=== PATIENT | female | born 1960 | race Caucasian/White ===

== ENCOUNTER 2022-02-06 12:48 | Outpatient (REF) | payer MEDICARE, SELFPAY ==
[2022-02-06 13:55] LABS: Estimated Average Glucose 140 mg/dL; Hemoglobin A1c % 6.5 %
[2022-02-06 14:07] LABS: Alanine Aminotransferase 16 U/L (0-31); Albumin Level 4.2 g/dL (3.5-5.0); Alkaline Phosphatase 90 U/L (39-117); Anion Gap 11 (12-20); Aspartate Amino Transferase 12 U/L (5-31); Bilirubin Total 0.6 mg/dL (0.0-1.0); Blood Urea Nitrogen 21 mg/dL (9-16); Calcium 9.8 mg/dL (8.4-10.2); Carbon Dioxide 27 mmol/L (22-29); Chloride 105 mmol/L (96-108); Estimated Glomerular Filt Rate 35; Glucose Random 106 mg/dL (60-115); Sodium 139 mmol/L (135-145); Total Protein 7.3 g/dL (6.5-8.0)
== END 2022-02-06 12:49 | disposition home or self-care (01) ==
LOC: HO.LAB 12:48
PROVIDERS: PCP Internal Medicine; Visit Provider Psychiatry & Neurology Psychiatry
DX: F31.0 Bipolar disorder, current episode hypomanic (principal)
CPT/HCPCS: 36415; 80053; 83036

== ENCOUNTER → 2022-07-15 09:10 | Outpatient (BNVA) | payer MEDICARE, SELFPAY | PROVIDERS: PCP Internal Medicine; Visit Provider Psychiatry & Neurology Psychiatry | DX: F31.9 Bipolar disorder, unspecified (principal) | CPT/HCPCS: 90833; 99212 ==

== ENCOUNTER → 2022-09-11 10:33 | Outpatient (BNVA) | payer MEDICARE, SELFPAY | PROVIDERS: PCP Internal Medicine; Visit Provider Psychiatry & Neurology Psychiatry | DX: F31.9 Bipolar disorder, unspecified (principal); E11.22 Type 2 diabetes mellitus with diabetic chronic kidney disease; N18.30 Chronic kidney disease, stage 3 unspecified; D89.40 Mast cell activation, unspecified | CPT/HCPCS: 99212 ==

== ENCOUNTER 2024-03-24 11:49 | Outpatient (AMB) | payer MEDICARE, SELFPAY ==
--- NOTE | 2024-03-24 12:40 | MHC.OFFVISPS ---
Intake Intake Visit Reasons: depression Allergies Sulfa (Sulfonamide Antibiotics) [SULFA (SULFONAMIDE ANTIBIOTICS)] Allergy (Unknown, Unverified 05/30/20 16:56) UNKNOWN, RASH Medication List - Last Reconciled 03/24/24 by Sami Dalton MD albuterol sulfate 90 mcg/actuation 0 mcg inhalation aspirin mg PO DAILY famotidine 40 mg PO BID famotidine 40 mg PO BID levothyroxine 75 mcg PO DAILY quetiapine 25 mg PO BID PRN quetiapine 300 mg (3 x 100 mg) PO BEDTIME semaglutide (Ozempic) 2 mg subcut QWEEK HPI- Psychiatric Chief Complaint: depression HPI Narrative: Patient seen psychiatric follow-up. Tends to be noncompliant often with follow-up appointments. Patient had been relatively stable on Lamictal Seroquel we have discussed benefit of being on a mood stabilizing agent that is not also on antipsychotic secondary to issues related to tardive dyskinesia. Patient does have some degree of chronic financial difficulty which is an ongoing stress. 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 Patient did tolerate lamotrigine Patient has had some episodes of hypomania generally tends more toward depression Past Psychiatric History: past hx hosp for depression used see dr cheney Mental Status Exam Mental Status Exam Narrative: Mental Status Exam Narrative: Appearance: Casually dressed Behavior: Cooperative appropriate psychomotor: Within normal limits Speech: Normal volume and prosody Thought proccess logical and goal-directed some rumination Thought content: Some focus on multiple life concerns financial concerns Mood: anxiety Affect: Appropriate to mood full affect SI:denies HI:denies VH/AH:none Delusions: None Insight/judgment: Good insight and judgment Memory/cog: Intact Assessment and Plan Assessment & Plan (1) Bipolar 1 disorder: Status: Acute Code(s): F31.9 - Bipolar disorder, unspecified (2) Diabetes type 2, controlled: Status: Acute Code(s): E11.9 - Type 2 diabetes mellitus without complications (3) CKD (chronic kidney disease) stage 3, GFR 30-59 ml/min: Status: Acute Code(s): N18.30 - Chronic kidney disease, stage 3 unspecified (4) Mast cell activation syndrome: Status: Acute Code(s): D89.40 - Mast cell activation, unspecified Plan Discussed with patient option to restart lamotrigine no evidence of oral facial dyskinesia or other abnormal movements noted on exam. Patient is aware of tardive dyskinesia risk and increased blood sugar with quetiapine has felt comfortable with this for an extended period of time. Resume prior plan lamotrigine try and see if Seroquel dose can be gradually lowered over time once lamotrigine that more therapeutic dose some cycling noted no psychosis follow-up 6 weeks Medications: New lamotrigine PO PER PKG DIR 28 ea 0RF Counseling and coordination of Care Pt. Self Management counseling: Med illness tx adherence Details-Self Mgmt counseling: Issues related to managing bipolar disorder long-term maintenance of bipolar disorder Medication management counseling: Effectiveness and Side effects Diagnosis and Prognosis Counseling: Impact of diagnosis on life functions, Problematic behaviors secondary to diagnosis and Adequacy of current interventions Details: I spent [38] minutes reviewing the record, seeing the patient and documenting in the medical record. Counseling provided to the patient/caregiver as outlined below. Addressed patient/caregiver concerns regarding current medication regime including effective adherence. Addressed patient/caregiver concerns regarding diagnosis and prognosis including accuracy of diagnosis, prognosis over time, impact of diagnosis. Addressed patient/caregiver concerns regarding impact of recent stressors. [facility] Medical History (Updated 07/15/22 @ 09:27 by Sami Dalton MD) Mast cell activation syndrome Bipolar 1 disorder Diabetes type 2, controlled CKD (chronic kidney disease) stage 3, GFR 30-59 ml/min Social History: 2b 2 sisters pos fh bipolar ? 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
== END 2024-03-24 13:05 | disposition home or self-care (01) ==
LOC: HO.HOP 11:49
PROVIDERS: PCP Internal Medicine; Visit Provider Psychiatry & Neurology Psychiatry
DX: F31.9 Bipolar disorder, unspecified (principal); E11.9 Type 2 diabetes mellitus without complications; N18.30 Chronic kidney disease, stage 3 unspecified; D89.40 Mast cell activation, unspecified
CPT/HCPCS: 90833; 99213

== ENCOUNTER → 2024-03-24 11:49 | Outpatient (BNVA) | payer MEDICARE, SELFPAY | PROVIDERS: PCP Internal Medicine; Visit Provider Psychiatry & Neurology Psychiatry | DX: F31.9 Bipolar disorder, unspecified (principal); E11.22 Type 2 diabetes mellitus with diabetic chronic kidney disease; N18.30 Chronic kidney disease, stage 3 unspecified; D89.40 Mast cell activation, unspecified | CPT/HCPCS: 99212 ==

== ENCOUNTER 2024-05-25 15:29 | Outpatient (AMB) | payer MEDICARE, SELFPAY ==
--- NOTE | 2024-05-25 15:35 | MHC.OFFVISPS ---
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 Allergies Sulfa (Sulfonamide Antibiotics) [SULFA (SULFONAMIDE ANTIBIOTICS)] Allergy (Unknown, Unverified 05/30/20 16:56) UNKNOWN, RASH Medication List - Last Reconciled 05/25/24 by Nisa Ellis APRN albuterol sulfate 90 mcg/actuation 0 mcg inhalation aspirin mg PO DAILY famotidine 40 mg PO BID famotidine 40 mg PO BID lamotrigine PO PER PKG DIR levothyroxine 75 mcg PO DAILY quetiapine 25 mg PO BID PRN quetiapine 300 mg (3 x 100 mg) PO BEDTIME semaglutide (Ozempic) 2 mg subcut QWEEK HPI- Psychiatric Chief Complaint: depression HPI Narrative: pt rports off lamictal due to not taking the starter kit as pills flavored with mint and she is allergic; pt mood elevated; speech slightly pressured; has significant trauma hx with adopted children and loss of one son last year. pt functioning well at work. sleep intact; no SI or Hi; she wonders about ADHD as she has just recently learned more about it and sees herself in the description. Discussed need to stabilize mood symptoms before evaluating and treating adhd symptoms Past Psychiatric History: past hx hosp for depression used see dr cheney Subjective Subjective Subjective Medication Compliance: Yes Side effects from medications: No Review of Systems Medical Review of Systems: unchanged Mental Status Exam Mental Status Exam Patient Appearance: Well Grooomed and Appropriate Patient Orientation: Person, Place, Time and Situation Level of Consciousness: Awake and Appropriate Patient Behavior: Appropriate and Cooperative Mood Description: Happy (elevated) Affect Description: Expansive Patient Cognition Impaired: No Ability to Follow Directions: Good Speech Pattern: Clear and Excessive Memory Description: Intact Hallucinations: None Delusions: Not Present Thought Process: Intact and Goal Oriented Thought Content: positive for Intact, positive for Goal Oriented and positive for Loose Associations Judgement: Good Assessment and Plan Assessment & Plan (1) Bipolar 1 disorder: Status: Acute Code(s): F31.9 - Bipolar disorder, unspecified Medications: New lamotrigine (Lamictal) 25 mg orally take one tab daily x 10 days then 2 tabs daily x 10 days then 4 tablets daily; 90 tabs 0RF lamotrigine (Lamictal) starting on June 16, 2024 take one tab daily x 10 days then take 1&1/2 tabs daily x 10 days then take 2 tabs daily; 60 tabs 0RF Refilled quetiapine 300 mg (3 x 100 mg) PO BEDTIME 270 tabs 0RF Discontinued lamotrigine Discontinued Reason: Doctor's Order PO PER PKG DIR 28 ea 0RF Counseling and coordination of Care Pt. Self Management counseling: Maintenance-social rhythm, Mod caffeine/ETOH intake, Sleep hygiene and Behavior activation Medication management counseling: Effectiveness, Side effects, Dosing range, Duration, Drug interaction and Adherence Diagnosis and Prognosis Counseling: Accuracy of diagnosis, Prognosis over time and Adequacy of current interventions Details: I spent 30 minutes reviewing the record, seeing the patient and documenting in the medical record. Counseling provided to the patient/caregiver as outlined below. Addressed patient/caregiver concerns regarding current medication regime including effective adherence. Addressed patient/caregiver concerns regarding diagnosis and prognosis including accuracy of diagnosis, prognosis over time, impact of diagnosis. Addressed patient/caregiver concerns regarding impact of recent stressors. [facility] Medical History (Updated 07/15/22 @ 09:27 by Sami Dalton MD) Mast cell activation syndrome Bipolar 1 disorder Diabetes type 2, controlled CKD (chronic kidney disease) stage 3, GFR 30-59 ml/min Social History: 2b 2 sisters pos fh bipolar ? 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
== END 2024-05-25 16:16 | disposition home or self-care (01) ==
LOC: HO.HOP 15:29
PROVIDERS: PCP Internal Medicine; Visit Provider Clinical Nurse Specialist Psychiatric/Mental Health
DX: F31.9 Bipolar disorder, unspecified (principal)
CPT/HCPCS: 99214

== ENCOUNTER → 2024-05-25 15:29 | Outpatient (BNVA) | payer MEDICARE, SELFPAY | PROVIDERS: PCP Internal Medicine; Visit Provider Clinical Nurse Specialist Psychiatric/Mental Health | DX: F31.9 Bipolar disorder, unspecified (principal) | CPT/HCPCS: 99212 ==

== ENCOUNTER 2024-07-25 09:45 | Outpatient (AMB) | payer MEDICARE, SELFPAY ==
--- NOTE | 2024-07-25 09:49 | MHC.OFFVISPS ---
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 Allergies Sulfa (Sulfonamide Antibiotics) [SULFA (SULFONAMIDE ANTIBIOTICS)] Allergy (Unknown, Unverified 05/30/20 16:56) UNKNOWN, RASH Medication List - Last Reconciled 07/25/24 by Nisa Ellis APRN albuterol sulfate 90 mcg/actuation 0 mcg inhalation aspirin mg PO DAILY dextroamphetamine-amphetamine 10 mg (Adderall) 10 mg PO BID famotidine 40 mg PO BID famotidine 40 mg PO BID lamotrigine (Lamictal) 200 mg PO DAILY levothyroxine 75 mcg PO DAILY quetiapine 300 mg (3 x 100 mg) PO BEDTIME quetiapine 25 mg PO BID PRN semaglutide (Ozempic) 2 mg subcut QWEEK HPI- Psychiatric Chief Complaint: depression HPI Narrative: Pt reports no depression but continued difficulties with attention, focus, easy frustrated when things are out of order. she reports getting very upset about faily moving her belongings several times which interferes with her organization; she reports sleeping well. no pressured speech, no grandiosity. no behavioral impulsivity; reports verbal outbursts about boundary violations. Past Psychiatric History: past hx hosp for depression used see dr cheney Subjective Subjective Subjective Medication Compliance: Yes Side effects from medications: No Review of Systems Medical Review of Systems: unchanged Mental Status Exam Mental Status Exam Patient Appearance: Well Grooomed and Appropriate Patient Orientation: Person, Place, Time and Situation Level of Consciousness: Awake, Appropriate and Alert Patient Behavior: Appropriate and Talkative Mood Description: Calm Affect Description: Calm and Flat Patient Cognition Impaired: No Ability to Follow Directions: Good Speech Pattern: Clear Memory Description: Intact Hallucinations: None Delusions: Not Present Thought Process: Intact Thought Content: positive for Intact and positive for Loose Associations Judgement: Good Assessment and Plan Assessment & Plan (1) ADHD (attention deficit hyperactivity disorder), combined type: Status: Acute Code(s): F90.2 - Attention-deficit hyperactivity disorder, combined type (2) Bipolar 1 disorder: Status: Acute Code(s): F31.9 - Bipolar disorder, unspecified Plan lamictal 200mg daily seroquel 300mg at hs seroquel 25 mg bid prn anxiety/agitation trial of adderall 10 mg BID Medications: New lamotrigine (Lamictal) 200 mg PO DAILY 90 tabs 2RF dextroamphetamine-amphetamine 10 mg (Adderall) administer doses at least 4-6 hours apart; Partial Fill upon patient request. 10 mg PO BID 60 tabs 0RF Refilled quetiapine 300 mg (3 x 100 mg) PO BEDTIME 270 tabs 0RF quetiapine 25 mg PO BID PRN 60 tabs 2RF anxiety Discontinued lamotrigine (Lamictal) Discontinued Reason: Doctor's Order 100 mg PO DAILY 90 tabs 1RF Counseling and coordination of Care Pt. Self Management counseling: Mod caffeine/ETOH intake, Sleep hygiene, Cognitive restructuring, General coping skills and Problem solving Medication management counseling: Effectiveness, Side effects, Dosing range, Duration, Drug interaction and Adherence Diagnosis and Prognosis Counseling: Accuracy of diagnosis, Prognosis over time, Impact of diagnosis on life functions, Impact of family relationship, Problematic behaviors secondary to diagnosis and Adequacy of current interventions Details: I spent 45 minutes reviewing the record, seeing the patient and documenting in the medical record. Counseling provided to the patient/caregiver as outlined below. Addressed patient/caregiver concerns regarding current medication regime including effective adherence. Addressed patient/caregiver concerns regarding diagnosis and prognosis including accuracy of diagnosis, prognosis over time, impact of diagnosis. Addressed patient/caregiver concerns regarding impact of recent stressors. COUNTS INCLUDE 234 BEDS AT THE [facility] Medical History (Updated 07/25/24 @ 10:00 by Nisa Ellis APRN) Mast cell activation syndrome Bipolar 1 disorder Diabetes type 2, controlled CKD (chronic kidney disease) stage 3, GFR 30-59 ml/min Social History: 2b 2 sisters pos fh bipolar ? 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
== END 2024-07-25 09:48 | disposition home or self-care (01) ==
LOC: HO.HOP 09:45
PROVIDERS: PCP Internal Medicine; Visit Provider Clinical Nurse Specialist Psychiatric/Mental Health
DX: F31.31 Bipolar disorder, current episode depressed, mild (principal); F90.2 Attention-deficit hyperactivity disorder, combined type
CPT/HCPCS: 99215

== ENCOUNTER → 2024-07-25 09:45 | Outpatient (BNVA) | payer MEDICARE, SELFPAY | PROVIDERS: PCP Internal Medicine; Visit Provider Clinical Nurse Specialist Psychiatric/Mental Health | DX: F90.2 Attention-deficit hyperactivity disorder, combined type (principal); F31.9 Bipolar disorder, unspecified | CPT/HCPCS: 99212 ==

== ENCOUNTER 2024-09-25 14:56 | Outpatient (AMB) | payer MEDICARE, SELFPAY ==
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
== END 2024-09-25 15:35 | disposition home or self-care (01) ==
PROVIDERS: PCP Internal Medicine; Visit Provider Clinical Nurse Specialist Psychiatric/Mental Health
DX: F90.2 Attention-deficit hyperactivity disorder, combined type (principal); F31.9 Bipolar disorder, unspecified
CPT/HCPCS: 99214

== ENCOUNTER → 2024-09-25 14:56 | Outpatient (BNVA) | payer MEDICARE, SELFPAY | PROVIDERS: PCP Internal Medicine; Visit Provider Clinical Nurse Specialist Psychiatric/Mental Health | DX: F90.2 Attention-deficit hyperactivity disorder, combined type (principal); F31.9 Bipolar disorder, unspecified | CPT/HCPCS: 99212 ==

== ENCOUNTER 2024-11-14 08:51 | Outpatient (AMB) | payer MEDICARE, SELFPAY ==
--- NOTE | 2024-11-14 09:07 | MHC.OFFVISPS ---
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 Allergies Sulfa (Sulfonamide Antibiotics) [SULFA (SULFONAMIDE ANTIBIOTICS)] Allergy (Unknown, Unverified 05/30/20 16:56) UNKNOWN, RASH Medication List - Last Reconciled 11/14/24 by Nisa Ellis APRN albuterol sulfate 90 mcg/actuation 0 mcg inhalation aspirin mg PO DAILY dextroamphetamine-amphetamine 10 mg (Adderall) 10 mg PO BID famotidine 40 mg PO BID famotidine 40 mg PO BID lamotrigine (Lamictal) 200 mg PO DAILY levothyroxine 75 mcg PO DAILY quetiapine 300 mg (3 x 100 mg) PO BEDTIME quetiapine 25 mg PO BID PRN semaglutide (Ozempic) 2 mg subcut QWEEK HPI- Psychiatric Chief Complaint: depression HPI Narrative: pt reports mood stableoverall; she does report low energy, low motivation, she often doesn't take the second adderall as she not sure what tieme to take it; she feels the first adderall works most of the day but wears off around 3 pm. we discussed her takinf the second addeerall at 3 pm or at least 4-5 hours before bedtime. no medical changes; she is still getting used to her new home; she has finiancial stress; she does have friends she is spending time with. no SI no HI; no hypomania. She sees PCP Dr Kalen Romero from [facility] for PCP every 6 months and has labs done; she will try to send me the most recent labs done. Past Psychiatric History: past hx hosp for depression used see dr cheney Subjective Subjective Subjective Medication Compliance: Yes Side effects from medications: No Review of Systems Medical Review of Systems: unchanged Mental Status Exam Mental Status Exam Patient Appearance: Well Grooomed and Appropriate Patient Orientation: Person, Place, Time and Situation Level of Consciousness: Awake, Appropriate and Alert Patient Behavior: Appropriate and Cooperative Mood Description: Calm and Depressed Affect Description: Depressed and Flat Ability to Follow Directions: Good Speech Pattern: Clear and Soft-Spoken Memory Description: Intact Hallucinations: None Delusions: Not Present Thought Process: Intact and Goal Oriented Thought Content: positive for Intact and positive for Goal Oriented Judgement: Good Assessment and Plan Assessment & Plan (1) ADHD (attention deficit hyperactivity disorder), combined type: Status: Acute Code(s): F90.2 - Attention-deficit hyperactivity disorder, combined type (2) Bipolar 1 disorder: Status: Acute Code(s): F31.9 - Bipolar disorder, unspecified Plan continue medications as is; take second adderall around 3pm daily retrun in 3 months f/u with PCP and obtain/share labs results if possible will request from pcp if pt unable Medications: Refilled dextroamphetamine-amphetamine 10 mg (Adderall) administer doses at least 4-6 hours apart; Partial Fill upon patient request. 10 mg PO BID 60 tabs 0RF lamotrigine (Lamictal) 200 mg PO DAILY 90 tabs 2RF quetiapine 25 mg PO BID PRN 60 tabs 2RF anxiety quetiapine 300 mg (3 x 100 mg) PO BEDTIME 270 tabs 1RF Counseling and coordination of Care Pt. Self Management counseling: Maintenance-social rhythm, Mod caffeine/ETOH intake, Nutrition education and improvement, Sleep hygiene, Behavior activation, General coping skills and Problem solving Medication management counseling: Effectiveness, Side effects, Dosing range, Duration, Drug interaction and Adherence Diagnosis and Prognosis Counseling: Accuracy of diagnosis, Prognosis over time, Impact of diagnosis on life functions, Impact of family relationship, Problematic behaviors secondary to diagnosis and Adequacy of current interventions Details: I spent 37 minutes reviewing the record, seeing the patient and documenting in the medical record. Counseling provided to the patient/caregiver as outlined below. Addressed patient/caregiver concerns regarding current medication regime including effective adherence. Addressed patient/caregiver concerns regarding diagnosis and prognosis including accuracy of diagnosis, prognosis over time, impact of diagnosis. Addressed patient/caregiver concerns regarding impact of recent stressors. [facility] Medical History (Updated 07/25/24 @ 10:00 by Nisa Ellis APRN) Mast cell activation syndrome Bipolar 1 disorder Diabetes type 2, controlled CKD (chronic kidney disease) stage 3, GFR 30-59 ml/min Social History: 2b 2 sisters pos fh bipolar ? 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
--- OUTSIDE RECORDS SUMMARY | 2024-11-14 09:32 | XMS_ITS | Clinical Summary ---
Author Organization [facility], Address [address] [place] [phone] Phone Care Team Providers Care Line Installer Trolley Name Role Phone Kalen Ballesteros MD Primary Care Provider [phone] Allergies Active Allergy Reactions Criticality Noted Date Comments Sulfamethoxazole-Trimethop rim 12/15/2019 Procaine 12/15/2019 Other 12/15/2019 Oral steroid Prednisone Other (see comments) 10/16/2021 Sulfa Antibiotics 12/15/2019 Medications levothyroxine (SYNTHROID, LEVOTHROID) 75 MCG tablet Take 75 mcg by mouth 1 (one) time each day Active EPINEPHrine (EPIPEN) 0.3 MG/0.3ML injection syringe 12/30/2020 Active QUEtiapine (SEROquel) 100 MG tablet TAKE THREE TABLETS BY MOUTH EVERY DAY AT BEDTIME 01/28/2021 Active Multiple Vitamin (multivitamin) capsule Take 1 capsule by mouth 1 (one) time each day Active famotidine (PEPCID) 40 MG tablet Take 40 mg by mouth 1 (one) time each day Active Dulaglutide (Trulicity) 1.5 MG/0.5ML solution pen-injector Inject under the skin Active omalizumab (Xolair) 150 MG injection Inject under the skin every 28 (twenty-eigh t) days Active levocetirizine (XYZAL) 5 MG tablet Take 5 mg by mouth 1 (one) time each day in the evening Active lamoTRIgine (LaMICtal) 150 MG tablet Take 150 mg by mouth at bed time 03/13/2022 Active Active Problems Problem Noted Date Diagnosed Date Stage 3a chronic kidney disease 12/15/2019 Overview (09/16/2020): Update for Diagnosis Load Hypothyroidism Polycystic kidney Recurrent urinary tract infection Vitamin D deficiency Type 2 diabetes mellitus Resolved Problems Problem Noted Date Diagnosed Date Resolved Date Other obstructive and reflux uropathy 01/02/2021 Immunizations Name Administration Dates Next Due H1N1 Inj 06/27/2020 Hep A, Unspecified 10/26/2006 Influenza Whole 07/02/2020 Influenza, MDCK, PF, Quadrivalent 07/06/2020 Influenza, Unspecified 07/06/2020,06/02/2012 MMR 10/26/2006 Pfizer SARS-COV-2 09/10/2021,12/28/2020,12/08/19 21 Td, Unspecified 09/13/2006 Tdap 02/19/2017 Family History Medical History Relation Comments Seizures Child Cancer Father lung Diabetes Father Lung cancer Father Skin cancer Father Stroke Father Alzheimer's disease Mother Dementia Mother Kidney disease Mother kidney failure Colon cancer Sibling 1 Diabetes Sibling 1 Diabetes Sibling 2 all bother Cancer Sibling 3 brother colon Relation Status Comments Child Father Mother Alive Sibling 1 Sibling 2 Sibling 3 Social History Tobacco Use Types Packs/Day Years Used Date Smoking Tobacco: Never Smokeless Tobacco: Never Alcohol Use Standard Drinks/Week Comments No 0 (1 standard drink = 0.6 oz pur e alcohol) Comments Unknown Sex and Gender Information Value Date Recorded Sex Assigned at Not on file Legal Sex Female 4:35 PM EST Gender Identity Not on file Sexual Orientation Not on file Last Filed Vital Signs Vital Sign Reading Time Taken Comments Blood Pressure - - Pulse - - Temperature - - Respiratory Rate - - Oxygen Saturation - - Inhaled Oxygen Concentration - - Weight 72.6 kg (160 lb) 12/18/2019 3:48 PM EDT Height - - Body Mass Index - - Plan of Treatment Upcoming Encounters Date Type Department Care Team (Late st Contact Info) Description 06/27/2025 4:00 PM EDT Office Visit [facility], [address] [place] [address] Santos Guerrero MD [address] [place] [address] Health Maintenance Due Date Last Done Comments Breast Cancer Screening 1961 Pneumococcal Vaccine: Pediatrics (0 to 5 Years) and At-Risk Patients (6 to 64 Years) (1 of 2 - PCV) 1967 Colorectal Cancer Screening: Annual FOBT 2010 Colorectal Cancer Screening: Sigmoidoscopy 2010 Diabetes: Ophthalmology Exam 12/15/2019 Diabetes: Pedal Pulse Checked 12/15/2019 Diabetes: Sensory Foot Exam 12/15/2019 Diabetes: Visual Foot Exam 12/15/2019 Diabetes: Hemoglobin A1C 09/10/2022 06/11/2022 Influenza Vaccine (#1) 2024 0, 07/06/2020, 07/02/2020, Additional history exists Colorectal Cancer Screening: Colonoscopy 09/09/2027 09/09/2017 Hepatitis B Vaccine Aged Out No longe r eligible based on patient's age to complete this topic Procedures Procedure Name Priority Date/Time Associated Diagnosis Comments HEMOGLOBIN A1C Routine 06/11/2022 3:46 PM EDT Stage 3a chronic kidney disease (HCC) Adult polycystic kidney from Last 3 Months or Most Recently Relevant to Health Maintenance Results * (ABNORMAL) Hemoglobin A1c (06/11/2022 3:46 PM EDT) Hemoglobin A1C 6.2(H) (4.0-5.6) % [facility] Comment: MONITORING: In known diabetic patients, hemoglobin A1c targets should be discussed with health care provider. DIAGNOSTIC USE: ??The [place] Diabetes Association (ADA) and the World Health Organization (WHO) recommend the use of HbA1c to diagnose diabetes using a threshold of 6.5%. Patients who have an HbA1c between 5.7% and 6.4% are considered at increased risk for developing diabetes in the future. CAUTION: Falsely low HbA1c results may be observed in patients with hemolytic anemia, homozygous forms of abnormal hemoglobin (e.g. SS, CC, SC), , recent blood loss or hemoglobin F greater than 7%. Fructosamine may be used as an alternate test in these cases. REFERENCE: ADA: Standards of Medical Care in Diabetes 2020, The Journal of Clinical and Applied Research and Education Volume 43, Supplement 1 Testing performed or reported by [facility] [employer], a Service of [facility], [address] [place] [id number] Tangela Esparza MD, Physical Chemist [facility]# [id number] Blood (Blood, Venous) 06/11/2022 3:46 PM EDT 06/11/2022 3:48 PM EDT Santos Guerrero MD LAB BLOOD ORDERABLES Final Res ult [facility] from Last 3 Months or Most Recently Relevant to Health Maintenance Insurance [facility] Care Teams Line Installer Trolley Relationship Specialty Start Date End Date Kalen Ballesteros MD [address] [place], [place] PCP - General 07/18/19
--- OUTSIDE RECORDS SUMMARY | 2024-11-14 09:32 | XMS_ITS | Continuity of Care Document ---
Author Organization [facility] Address [address] [place] [address] Phone [phone] Social History Type Date Description Comments Sex Unknown Medical Devices Description No Information Available Encounters Description No Information Available Assessments Description No Information Available Plan of Treatment No Information Available Functional Status Description No Information Available Mental Status Description No Information Available Referrals Description No Information Available
--- OUTSIDE RECORDS SUMMARY | 2024-11-14 09:32 | XMS_ITS | Encounter Summary ---
Author Organization [facility] Address [address] [place] [address] Phone Care Team Providers Care Hog Slaughterer Name Role Phone Kalen Ballesteros MD Primary Care Provider Encounter Details Date Type Department Care Team (Late Contact Info) Description 10/16/2021 Documentation Only [facility] [address] [place] [address] Santos Guerrero MD [address] [place] [address] [place] [address] Social History Tobacco Use Types Packs/Day Years Used Date Smoking Tobacco: Never Smokeless Tobacco: Never Alcohol Use Standard Drinks/Week Comments No 0 (1 standard drink = 0.6 oz pur e alcohol) Comments Unknown Sex and Gender Information Value Date Recorded Sex Assigned at Not on file Legal Sex Female 4:35 PM EST Gender Identity Not on file Sexual Orientation Not on file documented as of this encounter Plan of Treatment Upcoming Encounters Date Type Department Care Team (Late st Contact Info) Description 06/27/2025 4:00 PM EDT Office Visit [facility] [address] [place] [address] Santos Guerrero MD [address] [place] [address] [place] [address] documented as of this encounter Visit Diagnoses Not on filedocumented in this encounter Care Teams Hog Slaughterer Relationship Specialty Start Date End Date Kalen Ballesteros MD [address] [place] [address] PCP - General 07/18/19 documented as of this encounter
--- OUTSIDE RECORDS SUMMARY | 2024-11-14 09:32 | XMS_ITS | Encounter Summary ---
Author Organization [facility] Address [address] [place] [address] Phone Care Team Providers Care Museum Specialist Name Role Phone Kalen Ballesteros MD Primary Care Provider Encounter Details Date Type Department Care Team (Late Contact Info) Description 10/16/2021 Documentation Only [facility] [address] [place] [address] Santos Guerrero MD [address] [place] [address] [place] [address] Social History Tobacco Use Types [...] Visit [facility] [address] [place] [address] Santos Guerrero MD [address] [place] [address] [place] [address] documented as of this encounter Visit Diagnoses Not on filedocumented in this encounter Care Teams Museum Specialist Relationship Specialty Start Date End Date Kalen Ballesteros MD [address] [place] [address] PCP - General 07/18/19 documented as of this encounter
--- OUTSIDE RECORDS SUMMARY | 2024-11-14 09:32 | XMS_ITS | Encounter Summary ---
Author Organization [facility] Address [address] [place] [address] Phone Care Team Providers Care Scarfer Name Role Phone Kalen Ballesteros MD Primary Care Provider [phone] Encounter Details Date Type Department Care Team (Late st Contact Info) Description 07/29/2021 Telephone [facility] [address] [place] [address] Geovanna Yanez Social History Tobacco Use Types Packs/Day Years Used Date Smoking Tobacco: Never Alcohol Use Standard Drinks/Week Comments [...] Visit [facility], [address] [place] [address] Santos Guerrero MD [address] [place] [address] documented as of this encounter Visit Diagnoses Not on filedocumented in this encounter Care Teams Scarfer Relationship Specialty Start Date End Date Kalen Ballesteros MD [address] [place], [place] PCP - General 07/18/19 documented as of this encounter
== END 2024-11-14 09:27 | disposition home or self-care (01) ==
PROVIDERS: PCP Internal Medicine; Visit Provider Clinical Nurse Specialist Psychiatric/Mental Health
DX: F90.2 Attention-deficit hyperactivity disorder, combined type (principal); F31.9 Bipolar disorder, unspecified
CPT/HCPCS: 99214

== ENCOUNTER → 2024-11-14 08:51 | Outpatient (BNVA) | payer MEDICARE, SELFPAY | PROVIDERS: PCP Internal Medicine; Visit Provider Clinical Nurse Specialist Psychiatric/Mental Health | DX: F90.2 Attention-deficit hyperactivity disorder, combined type (principal); F31.9 Bipolar disorder, unspecified | CPT/HCPCS: 99212 ==